=== PATIENT | male | born 1950 | race Caucasian/White ===

== ENCOUNTER 2016-08-21 13:24 | Inpatient (IN) | payer OTHER ==
--- NOTE | ~2016-08-21 | HP ---
History And Physical [id number] [facility] [place]. [address] NAME: EUNICE MOISE JR : 54 STATUS : ADM Yessi PAT#: [id number] AGE: 65 ADM/REG DATE : 08/21/16 MR#: [id number] REPORT SERV DATE: 08/21/16 DICTATED BY: CINTHYA PRETTY II DATE: 08/21/16 REPORT STATUS : Draft TRANSCRIBED BY: MODLucas DATE: 08/21/16 DATE OF ADMISSION: 08/21/2016 PRIMARY ONCOLOGIST: Dr. Borrero. CHIEF COMPLAINT: Severe odynophagia. HISTORY OF PRESENT ILLNESS: The patient is a 65-year-old male with a history of mantle cell lymphoma, chronic thrombocytopenia, paroxysmal AFib, on Eliquis, hypertension, CHF, and CKD stage III, who presented to [facility] ER today due to severe odynophagia and reported fevers. The patient has been recently started a little over a week ago on ibrutinib. Since then, after being on it few days, he started to experience worsening sore throat. He has severe posterior pharyngeal pain and this is progressed down steadily through his esophagus so, he feels burning in his chest and has been unable to even drink water now due to severe odynophagia. He has not been able the tolerate any other p.o. intake either. So, he came to the ER. He has also noted some epistaxis and increased thick secretions that he has been coughing up. Denies any cough for shortness of breath. Denies any nausea or vomiting, but has had chronic diarrhea for a while related to his history of chemotherapy. He takes Imodium for this. Denies any melena or hematochezia. Currently, his epistaxis is stopped. His main complaint is odynophagia. He did report a fever of up to 102 at home, though he is afebrile here. In the ER, his laboratory evaluation is fairly unremarkable. UA and chest x ray were normal. Dr. Borrero was notified in the ER and thought his symptoms were all secondary to his ibrutinib. Hospitalist Service was consulted for admission. REVIEW OF SYSTEMS: A 10-point review of systems negative except for HPI. PAST MEDICAL HISTORY: 1. Mantle cell lymphoma, followed by Dr. Borrero; splenomegaly; abdominal and mediastinal lymphadenopathy. Currently started on ibrutinib. 2. Paroxysmal atrial fibrillation with history of recurrent cardioversion and ablation, seen by Dr. Deshpande. 3. Diverticulitis, status post surgery. 4. Hypertension. 5. Sleep apnea, not on CPAP. 6. Systolic congestive heart failure. We will consider nonischemic with history of a negative heart cath. 7. Nephrolithiasis. 8. Depression. 9. CKD, stage III, baseline creatinine of 1.3 to 1.4 historically, though currently 1.04. 10.Colon polyps. PAST SURGICAL HISTORY: Cardiac ablation, cholecystectomy, appendectomy, right knee surgery, partial colectomy for diverticulitis, and right clavicle repair. ALLERGIES: CODEINE, HYDROCHLOROTHIAZIDE, AND DEMEROL. History And Physical [address] [address] NAME: EUNICE MOISE JR : 54 STATUS : ADM Yessi PAT#: [id number] AGE: 65 ADM/REG DATE : 08/21/16 MR#: [id number] REPORT SERV DATE: 08/21/16 DICTATED BY: CINTHYA PRETTY II DATE: 08/21/16 REPORT STATUS : Draft TRANSCRIBED BY: CHANO DATE: 08/21/16 SOCIAL HISTORY: The patient denies any alcohol, tobacco, or drug use. FAMILY HISTORY: Mother and father with cancer and mother and brother with heart disease. CURRENT MEDICATIONS: Eliquis, Colace, Prozac, Lasix, [place], ibrutinib, Imodium, Toprol, Prilosec, Zofran, Klor-Con, Chloraseptic spray, and Ambien. PHYSICAL EXAMINATION: VITAL SIGNS: Blood pressure 118/88, temperature 99.5, pulse 134 on admission, now 90s after a liter, respirations 18, and O2 saturation 97% on room air. GENERAL: The patient is alert and oriented x3, in no acute distress. NECK: Supple. Nontender. No lymphadenopathy, thyromegaly, or tender lymph nodes. HEENT: Moist mucous membranes with some posterior pharyngeal erythema. There are no obvious exudates or ulcerations. Pupils equal, round, reactive to light. Conjunctive clear. RESPIRATORY: Lungs clear to auscultation bilaterally. No wheezes, rhonchi, or rales. Nonlabored breathing. CARDIOVASCULAR: Regular rhythm. No murmurs, rubs, gallops. ABDOMEN: Soft, nontender, nondistended. Normoactive bowel sounds. EXTREMITIES: No cyanosis, clubbing, or edema. SKIN: No lesions rashes or wounds. NEURO: No focal deficits. LABORATORY DATA: WBC 9.9, hemoglobin 12.1, platelets 57. Lactic acid 0.8. Procalcitonin 0.05. Sodium 136, potassium 3.9, chloride 101, CO2 of 27, BUN 10, creatinine 1.04. Albumin 3.8, T bilirubin 2.5. Alkaline phosphatase 74, ALT 9, AST 8. Influenza screen negative. RADIOGRAPHIC DATA: 1. Chest x-ray, unremarkable. 2. Urinalysis, unremarkable. ASSESSMENT: The patient is a 65-year-old male with: 1. Severe stomatitis, esophagitis secondary to ibrutinib likely. 2. Reported fever. There is no evidence of infection at this point in time. 3. Mantle cell lymphoma, followed by Dr. Borrero. Recently started on ibrutinib. 4. Chronic thrombocytopenia. 5. Paroxysmal atrial fibrillation, on Eliquis. 6. Hypertension. 7. Chronic systolic congestive heart failure, currently compensated. 8. Chronic kidney disease, stage III, reportedly, though currently creatinine 1. PLAN: The patient will be admitted to observation. Continue on IV fluids and will provide supportive care with pain control MD Daniels with viscous lidocaine and monitor symptoms. We will consult Dr. Borrero for further recommendations in regard to his chemotherapy. Otherwise, the patient is full code. History And Physical [address] [address] NAME: EUNICE MOISE JR : 54 STATUS : ADM Yessi PAT#: [id number] AGE: 65 ADM/REG DATE : 08/21/16 MR#: [id number] REPORT SERV DATE: 08/21/16 DICTATED BY: CINTHYA PRETTY II DATE: 08/21/16 REPORT STATUS : Draft TRANSCRIBED BY: CHANO DATE: 08/21/16 VALORIE/CHANO Cinthya Pretty II, MD / [id number] CC: MD Darío Sawyer II, II
--- NOTE | ~2016-08-21 | DS ---
Discharge Summary [facility] [address] [place]. [address] NAME: EUNICE MOISE JR : 54 STATUS : DIS Yessi PAT#: [id number] AGE: 65 ADM/REG DATE : 08/21/16 MR#: [id number] REPORT SERV DATE: 08/25/16 DICTATED BY: CINTHYA PRETTY II DATE: 08/24/16 REPORT STATUS : Draft TRANSCRIBED BY: MODLucas DATE: 08/24/16 ADMISSION DATE: 08/21/2016 DISCHARGE DATE: 08/24/2016 DISCHARGE DIAGNOSES: 1. Stomatitis and esophagitis secondary to ibrutinib. 2. Thrombocytopenia. 3. Mantle cell lymphoma, followed by Dr. Borrero, with splenomegaly and abdominal and mediastinal lymphadenopathy. 4. Paroxysmal atrial fibrillation, on Eliquis. 5. Hypertension. 6. Likely bronchitis. 7. Systolic congestive heart failure, chronic and currently compensated. 8. CKD, stage 3. CONSULTS: Maxwell Nguyen M.D. with [facility]. BRIEF HISTORY OF PRESENT ILLNESS: The patient is a 65-year-old male with the above history who presented to [facility] due to severe odynophagia and decreased p.o. intake. For detailed history and physical examination, please see my note from 08/21/2016. HOSPITAL COURSE: After admission, the patient was given IV fluids, supportive care as well as MD Daniels mouthwash, viscous lidocaine, and Dilaudid for pain control. His white count was normal at 9 and was demonstrating no fever. His ibrutinib was stopped and his severe odynophagia and esophagitis seemed to have slowly improved. Dr. Nguyen's started the patient on Diflucan. Over the last few days, he has also started having a worsening productive cough with very thick greenish sputum. Chest x-ray is completely unremarkable. Procalcitonin is normal and he does have some scattered rhonchi. He was given morphine suspension for pain control and seems to be doing well with that. He is tolerating liquids and maintaining his hydration. Currently, his symptoms are controlled and he is stable for discharge. DISCHARGE MEDICATIONS: 1. Eliquis 5 mg p.o. b.i.d. 2. Diflucan 200 mg p.o. daily for five days. 3. Prozac 20 mg p.o. daily. 4. Mucinex 600 mg p.o. b.i.d. 5. Metoprolol 50 mg p.o. daily. 6. MD Daniels 5 mL p.o. q.i.d. 7. Prilosec 40 mg p.o. daily. 8. Ambien 10 mg p.o. at bedtime. 9. Zofran p.r.n. 10.Lasix 20 mg p.o. daily p.r.n. edema. 11.Potassium 20 mEq p.o. daily p.r.n. Lasix. 12.[place] 10/325 mg p.o. q.4 hours p.r.n. pain. 13.Imodium p.r.n. Discharge Summary [address] [address] NAME: EUNICE MOISE JR : 54 STATUS : DIS Yessi PAT#: [id number] AGE: 65 ADM/REG DATE : 08/21/16 MR#: [id number] REPORT SERV DATE: 08/25/16 DICTATED BY: CINTHYA PRETTY II DATE: 08/24/16 REPORT STATUS : Draft TRANSCRIBED BY: CHANO DATE: 08/24/16 14.Colace 100 mg p.o. daily p.r.n. constipation. 15.Azithromycin 500 mg p.o. daily x5 days. 16.Morphine 10 mg p.o. suspension q.6 hours p.r.n. pain. DISCHARGE INSTRUCTIONS: The patient will follow with Dr. Borrero this week. VALORIE/CHANO Cinthya Pretty II, MD / [id number] CC: MD YISEL Sawyer II, II
[2016-08-21 13:11] LABS: BASOPHILS 0.2 %; BASOPHILS ABSOLUTE 0.02 10/3/uL (0.0-0.16); EOSINOPHILS 0.5 %; EOSINOPHILS ABSOLUTE 0.05 10/3/uL (0.0-0.53); ER CBC TAT 0 Hrs 09 Mins; HEMATOCRIT 34.1 % (40.0-51.0); HEMOGLOBIN 12.1 g/dL (13.6-17.8); IMMATURE GRANULOCYTES 0.2 %; LYMPHOCYTES 61.5 %; LYMPHOCYTES ABSOLUTE 6.08 10/3/uL (0.67-4.30); MEAN CORPUS HGB CONC 35.5 g/dL (32.0-36.0); MEAN CORPUSCULAR HEMOGLOB 30.7 pg (26.0-34.0); MEAN CORPUSCULAR VOLUME 86.5 fL (80-100); MEAN PLATELET VOLUME 10.1 fL (9.2-13.0); MONOCYTES 7.3 %; MONOCYTES ABSOLUTE 0.72 10/3/uL (0.21-1.20); NEUTROPHILS 30.3 %; RBC DISTRIBUTION WIDTH 15.9 % (12.0-16.0); RED CELL COUNT 3.94 10/6/uL (4.7-6.1); WHITE BLOOD CELLS 9.9 10/3/uL (4.5-10.5)
[2016-08-21 13:12] LABS: IMMATURE GRANULOCYTES ABSOLUTE 0.02 10/3/uL (0.0-0.11); MANUAL DIFF NO %
[2016-08-21 13:12] LABS: ASCORBIC ACID (UR NOT ORDER) NEG (NEG); BILIRUBIN, URINE NEGATIVE (NEG); ER URINALYSIS TAT 0 Hrs 08 Mins; KETONE, URINE NEGATIVE (NEG); LEUKOCYTE ESTERASE(NOT OR NEG (NEG); NITRITE (URINE) NEG (NEG); WBC (NOT ORDERED) (RFLEX) 1 (0-5)
[2016-08-21 13:20] LABS: A/G RATIO 1.2 (0.7-1.9); ALBUMIN 3.8 G/DL (3.5-5.0); ALKALINE PHOSPHATASE 74 U/L (45-117); BUN (BLOOD UREA NITROGEN) 10 MG/DL (6-23); CALCIUM, SERUM 8.7 MG/DL (8.5-10.4); CHLORIDE, SERUM 101 MMOL/L (96-112); CO2 (CARBON DIOXIDE) 27 MMOL/L (24-34); CREATININE 1.04 MG/DL (0.70-1.30); GFR AFRICAN AMERICAN 88 ML/MIN (>=60); GFR NON AFRICAN AMERICAN 76 ML/MIN (>=60); GLOBULIN 3.2 G/DL (2.5-4.1); GLUCOSE, SERUM 95 MG/DL (60-99); POTASSIUM, SERUM 3.9 MMOL/L (3.5-5.3); SGOT(AST) 8 U/L (5-40); SGPT(ALT) 9 U/L (5-65)
[2016-08-21 13:21] LABS: SODIUM, SERUM 136 MMOL/L (135-148); TOTAL BILIRUBIN 2.5 MG/DL (0-1.2)
[~2016-08-21 13:24] MED LIST: ADVIL PO; AMB5 PO; ASAB PO; CENTRUM PO; COREG12 PO; COREG3 PO; COREG6 PO; DIOV160 PO; DIOVAN320 MG PO; ELIQUIS 5 MG TAB5 MG PO; IMDUR30 PO; LAN25 PO; LIPITOR40 PO; MULTIVIT/MIN PO; NORCO1 TAB PO; P20 PO; PERCOCET1 TA4 PO; PRILO PO; PRILOSEC40 MG PO; PROZAC PO; SPIRO25 PO; ULTRAM50 PO; XANAX1 MG PO; Z300 PO; ZOFRAN4 PO
[2016-08-21 13:44] LABS: PLATELET COUNT 57 10/3/uL (150-400)
[2016-08-21 13:45] LABS: BAND NEUTROPHILS 1 %; BASOPHILS 1 %; EOSINOPHILS 1 %; ER DIFF TAT 0 Hrs 43 Mins; LYMPHOCYTES 61 %; LYMPHOCYTES ABSOLUTE (CALC) 6.04 10/3/uL (0.67-4.30); MONOCYTES 3 %; NEUTROPHILS ABSOLUTE (CALC) 3.37 10/3/uL (2.02-8.40); SEGMENTED NEUTROPHIL (0) 33 %; TOTAL NUCLEATED CELLS 100
[2016-08-21 13:46] LABS: PLATELET ESTIMATE DEC (ADEQUATE); RBC MORPHOLOGY NORM (NORMAL)
[2016-08-21] MEDS ORDERED: PRILOSEC40 MG PO (13:50)
[2016-08-21] MEDS ORDERED: TOPXL50 PO (13:51)
[2016-08-21] MEDS ORDERED: ZOFRAN8 PO (13:51)
[2016-08-21] MEDS ORDERED: IMBRU140C PO (13:52)
[2016-08-21] MEDS ORDERED: CHLORASEPTIC SPRAY MT (13:53)
[2016-08-21] MEDS ORDERED: ELIQUIS 5 MG TAB5 MG PO (13:53)
[2016-08-21] MEDS ORDERED: KLOR-CON M2020 MEQ PO (13:54)
[2016-08-21] MEDS ORDERED: L20 PO (13:54)
[2016-08-21] MEDS ORDERED: AMB10 PO (13:55)
[2016-08-21] MEDS ORDERED: NORCO1 TAB PO (13:55)
[2016-08-21] MEDS ORDERED: AMOXIL875 MG PO (13:55)
[2016-08-21] MEDS ORDERED: PROZAC PO (13:55)
[2016-08-21] MEDS ORDERED: DSS PO (13:56)
[2016-08-21] MEDS ORDERED: IMOD PO (13:56)
[2016-08-21 14:21] LABS: LACTATE 0.8 MMOL/L (0.3-2.4)
[2016-08-21 14:26] LABS: INFLUENZA A SCREEN NEGATIVE (NEGATIVE); INFLUENZA B SCREEN NEGATIVE (NEGATIVE)
[2016-08-21 14:37] LABS: PROCALCITONIN <0.05 ng/mL (<0.5)
[2016-08-22 07:25] LABS: BASOPHILS 0.3 %; BASOPHILS ABSOLUTE 0.02 10/3/uL (0.0-0.16); EOSINOPHILS 1.6 %; HEMATOCRIT 31.5 % (40.0-51.0); HEMOGLOBIN 10.9 g/dL (13.6-17.8); IMMATURE GRANULOCYTES 0.3 %; IMMATURE GRANULOCYTES ABSOLUTE 0.02 10/3/uL (0.0-0.11); LYMPHOCYTES 60.4 %; LYMPHOCYTES ABSOLUTE 3.78 10/3/uL (0.67-4.30); MEAN CORPUS HGB CONC 34.6 g/dL (32.0-36.0); MEAN CORPUSCULAR HEMOGLOB 30.6 pg (26.0-34.0); MEAN CORPUSCULAR VOLUME 88.5 fL (80-100); MEAN PLATELET VOLUME 10.1 fL (9.2-13.0); MONOCYTES 9.9 %; MONOCYTES ABSOLUTE 0.62 10/3/uL (0.21-1.20); NEUTROPHILS 27.5 %; NEUTROPHILS ABSOLUTE 1.72 10/3/uL (2.02-8.40); PLATELET COUNT 52 10/3/uL (150-400); RBC DISTRIBUTION WIDTH 15.7 % (12.0-16.0); RED CELL COUNT 3.56 10/6/uL (4.7-6.1); WHITE BLOOD CELLS 6.3 10/3/uL (4.5-10.5)
[2016-08-22 07:28] LABS: MANUAL DIFF NO %
[2016-08-22 07:39] LABS: A/G RATIO 1.1 (0.7-1.9); ALBUMIN 3.2 G/DL (3.5-5.0); BUN (BLOOD UREA NITROGEN) 11 MG/DL (6-23); CHLORIDE, SERUM 105 MMOL/L (96-112); CO2 (CARBON DIOXIDE) 27 MMOL/L (24-34); CREATININE 0.98 MG/DL (0.70-1.30); GFR AFRICAN AMERICAN 95 ML/MIN (>=60); GFR NON AFRICAN AMERICAN 82 ML/MIN (>=60); GLUCOSE, SERUM 92 MG/DL (60-99); POTASSIUM, SERUM 4.2 MMOL/L (3.5-5.3); SGOT(AST) 7 U/L (5-40); SGPT(ALT) 7 U/L (5-65); SODIUM, SERUM 140 MMOL/L (135-148); TOTAL PROTEIN 6.2 G/DL (6.0-8.5)
[2016-08-22 07:40] LABS: ALKALINE PHOSPHATASE 61 U/L (45-117); TOTAL BILIRUBIN 1.4 MG/DL (0-1.2)
[2016-08-22 08:05] LABS: PLATELET ESTIMATE DEC (ADEQUATE); RBC MORPHOLOGY NORM (NORMAL); TOTAL NUCLEATED CELLS 1
[2016-08-24 09:00] LABS: BASOPHILS 0.5 %; BASOPHILS ABSOLUTE 0.02 10/3/uL (0.0-0.16); EOSINOPHILS 2.9 %; EOSINOPHILS ABSOLUTE 0.12 10/3/uL (0.0-0.53); HEMATOCRIT 31.3 % (40.0-51.0); HEMOGLOBIN 10.8 g/dL (13.6-17.8); IMMATURE GRANULOCYTES 0.2 %; IMMATURE GRANULOCYTES ABSOLUTE 0.01 10/3/uL (0.0-0.11); LYMPHOCYTES 40.6 %; LYMPHOCYTES ABSOLUTE 1.68 10/3/uL (0.67-4.30); MANUAL DIFF NO %; MEAN CORPUS HGB CONC 34.5 g/dL (32.0-36.0); MEAN CORPUSCULAR HEMOGLOB 30.5 pg (26.0-34.0); MEAN CORPUSCULAR VOLUME 88.4 fL (80-100); MEAN PLATELET VOLUME 9.8 fL (9.2-13.0); MONOCYTES ABSOLUTE 0.62 10/3/uL (0.21-1.20); NEUTROPHILS 40.8 %; NEUTROPHILS ABSOLUTE 1.69 10/3/uL (2.02-8.40); PLATELET COUNT 66 10/3/uL (150-400); RBC DISTRIBUTION WIDTH 15.7 % (12.0-16.0); RED CELL COUNT 3.54 10/6/uL (4.7-6.1); WHITE BLOOD CELLS 4.1 10/3/uL (4.5-10.5)
[2016-08-24 09:21] LABS: PLATELET ESTIMATE DEC (ADEQUATE); RBC MORPHOLOGY NORM (NORMAL)
[2016-08-24] MEDS ORDERED: FLUCON2 PO (15:29)
[2016-08-24] MEDS ORDERED: ZITHROMAX500 MG PO (15:30)
[2016-08-24] MEDS ORDERED: MUCINEX600 MG PO (15:31)
[2016-08-24] MEDS ORDERED: MORPHINE S20 MG/5 ML PO (15:32)
[2016-08-24] MEDS ORDERED: MD ANDERSON (15:34)
[2016-09-16] MEDS ORDERED: AMB10 PO (03:58)
[2016-09-16] MEDS ORDERED: NORCO1 TAB PO (03:59)
[2016-09-16] MEDS ORDERED: PROZAC PO (03:59)
[2016-09-16] MEDS ORDERED: L20 PO (04:00)
[2016-09-16] MEDS ORDERED: TOPXL50 PO (04:00)
[2016-09-16] MEDS ORDERED: IMBRU140C PO (04:01)
[2016-09-16] MEDS ORDERED: ELIQUIS 5 MG TAB5 MG PO (04:01)
[2016-09-16] MEDS ORDERED: PRILOSEC40 MG PO (04:02)
[2016-12-03] MEDS ORDERED: BIOFREEZE OINTMENT TOP (04:24)
[2016-12-03] MEDS ORDERED: TOPXL50 PO (04:24)
[2016-12-03] MEDS ORDERED: PRILOSEC40 MG PO (04:24)
[2016-12-03] MEDS ORDERED: PROZAC PO (04:24)
[2016-12-03] MEDS ORDERED: AMB10 PO (04:25)
[2016-12-03] MEDS ORDERED: ZOFRAN4 PO (04:25)
[2016-12-03] MEDS ORDERED: NORCO1 TAB PO (04:25)
[2016-12-03] MEDS ORDERED: COMP10B PO (04:26)
[2016-12-03] MEDS ORDERED: KDUR20 PO (04:26)
[2016-12-03] MEDS ORDERED: L20 PO (04:26)
[2016-12-03] MEDS ORDERED: ANDERSON PO (04:27)
[2016-12-03] MEDS ORDERED: IMBRU140C PO (04:32)
[2016-12-03] MEDS ORDERED: MICARDIS80 PO (04:33)
[2016-12-03] MEDS ORDERED: ELIQUIS 5 MG TAB5 MG PO (04:33)
[2016-12-03] MEDS ORDERED: CAT1 PO (04:33)
[2016-12-03] MEDS ORDERED: SPIRO25 PO (04:34)
== END 2016-08-24 16:45 | disposition home or self-care (01) | DRG 918 ==
LOC: ER 13:24 → 4EA 18:02
PROVIDERS: Hospitalist; Internal Medicine
DX: T45.1X5A Adverse effect of antineoplastic and immunosuppressive drugs, initial encounter (principal); C83.10 Mantle cell lymphoma, unspecified site; I13.0 Hypertensive heart and chronic kidney disease with heart failure and stage 1 through stage 4 chronic kidney disease, or unspecified chronic kidney disease; I50.22 Chronic systolic (congestive) heart failure; D69.6 Thrombocytopenia, unspecified; N18.3 Chronic kidney disease, stage 3 (moderate); K12.1 Other forms of stomatitis; I48.0 Paroxysmal atrial fibrillation; G47.30 Sleep apnea, unspecified; F32.9 Major depressive disorder, single episode, unspecified; K21.9 Gastro-esophageal reflux disease without esophagitis; F41.9 Anxiety disorder, unspecified; Z86.010 Personal history of colon polyps; Z90.49 Acquired absence of other specified parts of digestive tract; Z98.890 Other specified postprocedural states; Z88.5 Allergy status to narcotic agent; Z88.6 Allergy status to analgesic agent; Z88.8 Allergy status to other drugs, medicaments and biological substances; Z87.442 Personal history of urinary calculi; J40 Bronchitis, not specified as acute or chronic
CPT/HCPCS: 71010; 71020; 80053; 81001; 83605; 84145; 85025; 87040; 87070; 87804; 87880; 93005; 96361; 96374; 96375; 96376; 99285; A9270-GY; G0378; J1170; J2405